=== PATIENT | male | born 1995 | race American Indian/Alaskan Native ===

== ENCOUNTER 2020-01-18 22:13 | Emergency (ER) | payer SELFPAY ==
[2020-01-18 22:23] VITALS: BP 129/82
[2020-01-18] MEDS ORDERED: LIDOCAINE-MPF (1%) 10 MG/1 ML VIAL 5 ML INFILTRATI ONE (23:01)
[2020-01-18] MEDS ORDERED: TETANUS,DIPH,PERTUSS(ACELL) VACCINE 0.5 ML SYRINGE IM ONE (23:01)
[2020-01-18] MEDS ORDERED: ACETAMINOPHEN 500 MG TAB PO ONE (23:01)
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
== END 2020-01-19 01:09 | disposition home or self-care (01) ==
LOC: ED 22:13
DX: S21.412A Laceration without foreign body of left back wall of thorax with penetration into thoracic cavity, initial encounter (principal); S01.01XA Laceration without foreign body of scalp, initial encounter; F17.200 Nicotine dependence, unspecified, uncomplicated; F12.10 Cannabis abuse, uncomplicated; Y04.2XXA Assault by strike against or bumped into by another person, initial encounter; Y93.89 Activity, other specified; Y92.89 Other specified places as the place of occurrence of the external cause; Y99.8 Other external cause status
CPT/HCPCS: 70450; 90471; 90715